=== PATIENT | female | born 1955 | race Caucasian/White ===

== ENCOUNTER 2017-11-11 17:35 | Inpatient (IN) ==
--- NOTE | 2017-11-11 18:19 | ERNOTE ---
Lower Extremity HPI - General Lower Extremities Pain: hip: left Time Seen by Provider: 11/11/17 18:01 Source: patient, family Exam Limitations: no limitations - Immun/Allergies/Home Medications Immunizations: IMMUNIZATION HX Immunizations Up to Date Yes History of Influenza Vaccine No Hx Pneumococcal Vaccination No Allergies/Adverse Reactions: Allergies Allergy/AdvReac Type Severity Reaction Status Date / Time No Known Allergies Allergy Verified 11/11/17 17:56 Home Medications: HOME MEDICATIONS Levothyroxine Sodium [Synthroid] 150 mg PO DAILY 03/29/14 [Last Taken Unknown] Naproxen [Naprosyn] 500 mg PO BID PRN 03/29/14 [Last Taken Unknown] Multivit,Min/Folic Acid/Waj570 [Estroven Max Strength Caplet] 400 mcg PO DAILY 08/23/14 [Last Taken Unknown] Duloxetine HCl [Cymbalta] 60 mg PO DAILY 10/15/16 [Last Taken Unknown] HYDROcodone/ACETAMINOPHEN [[place] 5-325 Tablet] 1 tab PO Q4H PRN #20 tab [Last Taken Unknown] Omeprazole 20 mg PO DAILY 11/07/17 [Last Taken Unknown] tiZANidine HCL [Tizanidine HCl] 4 mg PO Q8H PRN 11/07/17 [Last Taken Unknown] predniSONE [Prednisone] 3 tab PO DAILY #15 tab 11/08/17 [Last Taken Unknown] - History of Present Illness Narrative: Patient complains of left hip pain that started over the weekend. She was seen here in the lumbar x-rays were negative, however when the pain got worse and the hip. She went to [place] and saw Dr. Miranda who did an x-ray of the pelvis and left hip and noticed a fracture there. Patient requested to come here for any surgery that might be needed. She rates the pain as at least moderate in severity. Occurred: other - over the weekend Location of Incident: home Method of Injury: Reports: no apparent injury Loss of Consciousness: Reports: no loss of consciousness Modifying Factors - (Worsens): Reports: other - weightbearing Associated Symptoms: Reports: unable to bear weight Other Injuries: Reports: none Review of Systems - Review of Systems Constitutional: Present: See HPI EYE: Present: no symptoms reported ENT: Present: no symptoms reported Respiratory: Present: no symptoms reported Cardiology: Present: no symptoms reported Gastrointestinal/Abdominal: Present: no symptoms reported Genitourinary: Present: no symptoms reported Musculoskeletal: Present: See HPI Skin: Present: no symptoms reported Neurological: Present: no symptoms reported Endocrine: Present: no symptoms reported Hematologic/Lymphatic: Present: no symptoms reported Psych: Present: no symptoms reported - Patient's Past Medical History Patient History - Medical: Depression, GERD, Hypothyroidism Patient History - Cardiac/Respiratory: No pertinent hx Patient History - Cancer: No Hx of Cancer Patient History - Surgical Procedures: Back Surgery, Colonoscopy, D & C, Hysterectomy Patient History - Other: None - Social History Living Situations: home Abuse History: No History of abuse Psych History: Hx of Depression Alcohol Use: none Drug Use: none - Immunizations Immunizations Up to Date: Yes Hx Pneumococcal Vaccination: No History of Influenza Vaccine: No Physical Exam - Physical Exam General Appearance: Present: wd/wn, alert, moderate distress Head Exam: Present: normal inspection, no evidence of injury Eye Exam: Normal inspection: bilateral, PERRL: bilateral Ears, Nose, Throat: Present: normal ENT inspection, H, normal pharynx Neck: Present: normal inspection, nontender Respiratory: Present: no respiratory distress, normal breath sounds, no accessory muscle use, chest nontender, lungs clear Cardiovascular/Chest: Present: regular rate, rhythm, no murmur, normal peripheral pulses Gastrointestinal/Abdominal: Present: normal bowel sounds, nontender, nondistended, soft, no organomegaly Rectal Exam: Present: deferred Back Exam: Present: normal inspection, normal range of motion Extremity Exam: Present: no edema, other - palpable tenderness over the left hip with the left leg turned and shortened Neurological Exam: Present: alert, oriented, normal mood/affect Skin Exam: Present: normal color, warm/dry Lymphatic Exam: Present: no adenopathy ED Progress - Results and Orders Patient's Lab Results:: I have reviewed the patient's lab results. - Vital Signs Patient's Vital Signs:: I have reviewed the patient's vital signs. Vital Signs: Vital Signs 11/11/17 17:48 Temperature 36.4 C L Pulse Rate 69 Respiratory 12 Rate Blood Pressure 135/75 O2 Sat by Pulse 95 Oximetry - EKG EKG: NSR EKG read: Interp. by me - X-Ray X-Ray #1 X-Ray: hip Interpretation: Reviewed by me X-Ray #2 X-Ray: chest Interpretation: Reviewed by me - Progress/Reassessment Chief Complaint: Hip Pain/Injury - Transfer of Care Expected Disposition: Admit Plan - Plan Plan: Patient will be admitted to the medical service, with an orthopedic consult Dr. Luna and surgical consideration will be undertaken in the morning. Departure Clinical Impression: Hip fracture, left Qualifiers: Encounter type: initial encounter Fracture type: closed Qualified Code(s): S72.002A - Fracture of unspecified part of neck of left femur, initial encounter for closed fracture - Departure Disposition: Still a patient Condition: Good Referrals: Lilia Carney MD [Primary Care Provider] -
[2017-11-11 19:11] LABS: Albumin * 3.4 gm/dl (3.4-5.0); Anion Gap 13.5 mmol/L (6.8-13.8); BUN/Creatinine Ratio 30.1 (9.0-21.6); Bilirubin, Total 0.4 mg/dL (0.0-1.1); Ca. Corrected For Albumin 8.9 mg/dL (8.4-10.2); Calcium * 8.7 mg/dL (7.9-10.9); Carbon Dioxide 27.9 mmol/L (24-32.6); Hematocrit 39.5 % (37.0-47.0); Magnesium 2.1 mg/dL (1.2-2.8); Mean Cell Volume 96.3 fl (78-100); Mean Corpuscular Hemoglobin 31.7 pg (27-31); Mean Corpuscular Hgb Conc 32.9 g/dl (32-36); Mean Platelet Volume 9.2 fl (6.0-9.5); Neutrophil % 86.6 % (42-75.0); Platelet Count 414 K/mm3 (150-450); Potassium 4.4 mmol/L (3.4-4.6); Red Cell Distribution Width 12.4 % (11.5-14.0); Total Protein 7.2 gm/dL (6.2-8.2); White Blood Count 13.9 K/mm3 (4.0-10.5)
[2017-11-11 19:14] LABS: Prothrombin Time (Patient) 9.8 Seconds (9.0-11.0)
[2017-11-11 19:19] LABS: INR 0.98 INR (0.90-1.10); Partial Thrombolplastin Time 22.6 Seconds (24-32)
[2017-11-11] MEDS ORDERED: MORPHINE SULFATE 2 MG/ML DISP.SYRIN IV ONE (20:08)
[2017-11-11] MEDS ORDERED: BISACODYL 5 MG TABLET.DR PO ONE (20:10)
[2017-11-11] MEDS ORDERED: SENNOSIDES 8.6 MG TABLET PO SCH (20:15)
--- NOTE | 2017-11-11 20:23 | PN ---
Progess Note - Interim Date: 11/11/17 Time: 20:13 Narrative: 11/11/17 20:13 62 yr old WF with a H/O multiple back surgeries[X4] had worsening pain LT hip and leg - seen in ER on 11/07/17 thought to be sciatica. 11/11/17 - seen by Dr. Carney who sent her to Dr. Miranda who did xrays - found LT hip fracture and sent her back to ER. ERP discussed with Dr. Luna and the patient was admitted for Rx. No H/O fall. H/O smoking for several years 2PPD - now e cigarette. labs reviewed. patient examined. labs reviewed. no cardiac risk factors.- HTN, T2Dm, Cr2.0, CAD, etc. will not need testing. NPO after midnight. Full H and P to done done [employer].[Jen Kumar].
[2017-11-11] MEDS: DEXTROSE 5%-NORMAL SALINE 1,000 ML IV PRN (20:58)
[2017-11-11] MEDS: SENNOSIDES 8.6 MG TABLET PO SCH (20:59)
--- NOTE | 2017-11-11 22:17 | HP ---
Chief Complaint - Chief Complaint Date of Service: 11/11/17 Time of Service: 22:13 Chief Complaint: " LT hip pain". Source of HPI- Pt reliable, ERP notes. History of Present Illness: Ms. Aranda is a 62-yr-old WF pt of Dr. Lilia Carney with PMH of:Chronic Back pain, HTN, HLD, Hypothyroidism & Spinal stenosis s/p laminectomy. Pt states that she first developed LT hip pain that was radiating down the thigh on 10/23/17 after mowing her father's yard. She thought she may have pulled a muscle and took Tramadol and Naproxyn which made the pain tolerable. She used a walking cane which also eased her walking. She saw her PCP on 10/30/17 about the unrelenting LT hip pain. She had LT Hip/Pelvis X-rays which did not show any acute findings involving fracture or dislocation. She was started on Prednisone. She states that on the night of 11/07/17, she could not sleep due to severe pain on LT hip and ended up seeking care at the ED. She had Lumbar spine X-rays which also did not have any acute findings. She was felt to have Sciatica and was discharged home on Prednisone, hydrocodone and advised to f/u with her PCP. She saw Dr. Carney today (11/11) and she was referred to Dr. Miranda - Orthopedic spine specialty at the [facility], who did an x-ray of the pelvis and left hip and noticed a fracture there. Pt elected to come to the [facility] as she resides in the area. Dr. Luna aware about pt's case according to ERP . She will be admitted inpatient for tentative plans of surgery on 11/12/17. - Patient's Past Medical History Patient History - Medical: Depression, GERD, Hypothyroidism Patient History - Cardiac/Respiratory: Hypertension, Hyperlipidemia Patient History - Cancer: No Hx of Cancer Patient History - Surgical Procedures: Back Surgery, Colonoscopy, D & C, Hysterectomy Patient History - Other: None - Family History Mother Family History - Medical: , Renal Disease Family History - Cardiac/Respiratory: Deep Vein Thrombosis Family History - Cancer: No pertinent family hx Father Family History - Medical: Family History - Cancer: No pertinent family hx Sister Family History - Medical: Family History - Cardiac/Respiratory: No pertinent hx Family History - Cancer: Bone - Social History Living Situations: spouse Abuse History: No History of abuse Psych History: Hx of Depression Smoking Status: Former smoker Have you smoked in the past 12 months: No Do you dip or chew tobacco: No Alcohol Use: none Drug Use: none - Immunizations Immunizations Up to Date: Yes Hx Pneumococcal Vaccination: No History of Influenza Vaccine: No Review Of Systems (GEN) - Review of Systems Generalized/Overall Review: Present: Weakness. Absent: Chills, Fever, Malaise EENTM: Absent: Eye Pain, Blurred Vision, Tearing Respiratory: Absent: Cough, Shortness of Breath, Orthopnea Cardiac: Absent: Chest Pain, Edema, Palpitations, Syncope Abdominal: Absent: Nausea, Vomiting, Hematemesis, Abdominal Pain, Constipation Genitourinary: Absent: Burning, Itching, Urgency Musculoskeletal: Present: Joint Pain, Back Pain. Absent: Joint Swelling, Muscle Pain Neurological: Absent: Headache, Anxiety, Depressed Skin: Absent: Dryness, Lesions, Change in Color Misc: All systems neg except as marked Immunizations: IMMUNIZATION HX Immunizations Up to Date Yes History of Influenza Vaccine No Hx Pneumococcal Vaccination No Allergies/Adverse Reactions: Allergies Allergy/AdvReac Type Severity Reaction Status Date / Time No Known Allergies Allergy Verified 11/11/17 21:02 Home Medications: HOME MEDICATIONS Levothyroxine Sodium [Synthroid] 150 mg PO DAILY 03/29/14 [Last Taken Unknown] Naproxen [Naprosyn] 500 mg PO BID PRN 03/29/14 [Last Taken Unknown] Duloxetine HCl [Cymbalta] 60 mg PO DAILY 10/15/16 [Last Taken Unknown] HYDROcodone/ACETAMINOPHEN [[place] 5-325 Tablet] 1 tab PO Q4H PRN #20 tab [Last Taken Unknown] Omeprazole 20 mg PO DAILY 11/07/17 [Last Taken Unknown] tiZANidine HCL [Tizanidine HCl] 4 mg PO Q8H PRN 11/07/17 [Last Taken Unknown] predniSONE [Prednisone] 3 tab PO DAILY #15 tab 11/08/17 [Last Taken Unknown] Soy Isofl/Blk Coh/Gr Tea/Yerba [Est[employer] Caplet] 1 cap PO DAILY 11/11/17 [Last Taken Unknown] Exam - Exam Vital Signs: Vital Signs - Last Taken Temp 36.5 C 11/11/17 21:07 Pulse 60 11/11/17 21:07 Resp 16 11/11/17 21:07 BP 168/81 11/11/17 21:07 Pulse Ox 97 11/11/17 21:07 Constitutional: Present: Alert, Cooperative, No distress ENT Exam: Present: normal ENT inspection Eye Exam: bilateral eye: normal inspection, PERRL Neck: Present: non-tender, full range of motion, supple Back Exam: Present: normal inspection Breasts: Present: Exam deferred Respiratory: Present: chest non-tender, No rales, No wheezing Cardiovascular/Chest: Present: normal peripheral pulses, regular rate, rhythm, no chest tenderness, no edema Abdomen: Present: Normal bowel sounds, soft, nontender /Rectal: Present: Exam deferred Extremity: Present: normal range of motion, non-tender, normal inspection, no pedal edema Skin Exam: Present: warm/dry, no cyanosis Lymphatic: Present: no adenopathy Neurologic: Present: alert, normal mood/affect, oriented x 3 Appearance: Present: appropriate appearance, appropriate insight Eye contact: Present: cooperative, good eye contact, normal speech Thoughts: Present: normal thought pattern, no apparent hallucination Diagnostic Studies: Laboratory Results WBC 13.9 K/mm3 (4.0-10.5) H 11/11/17 18:57 RBC 4.10 M/mm3 (4.2-5.4) L 11/11/17 18:57 Hgb 13.0 gm/dL (12.5-16.0) 11/11/17 18:57 Hct 39.5 % (37.0-47.0) 11/11/17 18:57 MCV 96.3 fl (78-100) 11/11/17 18:57 MCH 31.7 pg (27-31) H 11/11/17 18:57 MCHC 32.9 g/dl (32-36) 11/11/17 18:57 RDW 12.4 % (11.5-14.0) 11/11/17 18:57 Plt Count 414 K/mm3 (150-450) 11/11/17 18:57 MPV 9.2 fl (6.0-9.5) 11/11/17 18:57 Immature Gran % (Auto) 0.70 % (0.001-0.429) H 11/11/17 18:57 Immature Gran # (Auto) 0.10 K/mm3 (0.000-0.0310) H 11/11/17 18:57 Neutrophils % 86.6 % (42-75.0) H 11/11/17 18:57 Lymphocytes % 7.6 % (20-51) L 11/11/17 18:57 Monocytes % 5.0 % (0.0-9) 11/11/17 18:57 Eosinophils % 0.0 % (0.0-3.0) 11/11/17 18:57 Basophils % 0.1 % (0.0-1.0) 11/11/17 18:57 Nucleated RBC % 0.0 k/mm3 (0-1) 11/11/17 18:57 Neutrophils # 12.0 K/mm3 (1.3-6.0) H 11/11/17 18:57 Lymphocytes # 1.05 k/mm3 (1.5-3.5) L 11/11/17 18:57 Monocytes # 0.7 k/mm3 (0.0-1.0) 11/11/17 18:57 Eosinophils # 0.0 k/mm3 (0.0-0.7) 11/11/17 18:57 Absolute Basophils 0.0 k/mm3 (0.0-0.1) 11/11/17 18:57 PT 9.8 Seconds (9.0-11.0) 11/11/17 18:57 INR (Anticoag Therapy) 0.98 INR (0.90-1.10) 11/11/17 18:57 PTT ([place]) 22.6 Seconds (24-32) L 11/11/17 18:57 Sodium 137 mmol/L (132-142) 11/11/17 18:57 Plasma Sodium 137 mmol/L (130-142) 11/11/17 18:57 Potassium 4.4 mmol/L (3.4-4.6) 11/11/17 18:57 Chloride 100 mmol/L (97-106) 11/11/17 18:57 Carbon Dioxide 27.9 mmol/L (24-32.6) 11/11/17 18:57 Anion Gap 13.5 mmol/L (6.8-13.8) 11/11/17 18:57 BUN 28 mg/dL (3-23) H 11/11/17 18:57 Creatinine 0.93 mg/dL (0.4-1.4) 11/11/17 18:57 Est GFR (Non-Af Amer) 65 mL/min (60-130) 11/11/17 18:57 BUN/Creatinine Ratio 30.1 (9.0-21.6) H 11/11/17 18:57 Random Glucose 103 mg/dL (70-110) 11/11/17 18:57 Calcium 8.7 mg/dL (7.9-10.9) 11/11/17 18:57 Calcium Adj for Albumin 8.9 mg/dL (8.4-10.2) 11/11/17 18:57 Magnesium 2.1 mg/dL (1.2-2.8) 11/11/17 18:57 Total Bilirubin 0.4 mg/dL (0.0-1.1) 11/11/17 18:57 AST 24 U/L (0-48) 11/11/17 18:57 ALT 43 U/L (19-67) 11/11/17 18:57 Alkaline Phosphatase 77 U/L (50-170) 11/11/17 18:57 Troponin I Less than 0.017 ng/ml (0.00-0.10) 11/11/17 18:55 Total Protein 7.2 gm/dL (6.2-8.2) 11/11/17 18:57 Albumin 3.4 gm/dl (3.4-5.0) 11/11/17 18:57 Blood Type O Positive 11/11/17 18:57 Antibody Screen Negative 11/11/17 18:57 Assessment/Plan - Assessment/Plan (1) Hip fracture, left Assessment: According to LT hip/pelvis films obtained at an [facility], finding noted to have concerns of fracture. Will provide supportive care with IVF hydration, pain mgt , keep NPO and evaluate cardiac risk prior to noncardiac surgery. The labs involving CBC& BMP were mostly unremarkable and wbc could be due to stress from muscle injury/joint fracture. The EKG and Troponin were negative of ACS/ MT. The CXR did not have any acute cardiopulmonary signs. She denies Angina, dyspnea, palpitations, no hx of sycnope or heart disease. According to the RCRI , she has a score of 1 which is Class II risk and carries a 0.9% risk of a major cardiac event periperatively and postoperatively. The benefits of surgery outweighs the risk of not doing any and is clear to proceed with surgery. Dr. Luna will evaluate in am. Problem: Acute Qualifiers: Encounter type: initial encounter Fracture type: closed Qualified Code(s) : S72.002A - Fracture of unspecified part of neck of left femur, initial encounter for closed fracture (2) Hypothyroidism Assessment: Stable- Synthroid. Problem: Chronic (3) GERD (gastroesophageal reflux disease) Assessment: Stable- Omeprazole Problem: Chronic (4) HTN (hypertension) Assessment: Stable as of current. Keep pain under control. Problem: Chronic Qualifiers: Hypertension type: essential hypertension Qualified Code(s): I10 - Essential (primary) hypertension
[2017-11-11] MEDS ORDERED: NAPROXEN 500 MG TABLET PO PRN (23:34)
[2017-11-11] MEDS ORDERED: diphenhydrAMINE HCL 25 MG CAPSULE PO ONE (23:35)
[2017-11-12] MEDS: DEXTROSE 5%-NORMAL SALINE 1,000 ML IV PRN (05:01)
--- NOTE | 2017-11-12 05:24 | PN ---
Subjective - Date and Time Seen Date: 11/12/17 Time: 05:23 Subjective Narrative: Pt seen this am. Has no complaints. Reports LT hip pain with movement. No other acute events overnight. Objective - Vitals Vitals: Last Vital Signs Temp 36.3 C L 11/11/17 23:30 Pulse 68 11/11/17 23:30 Resp 18 11/11/17 23:30 BP 170/77 11/11/17 23:30 Pulse Ox 97 11/11/17 23:30 - Exam Constitutional: Present: Alert, Oriented x3, No distress ENT Exam: Present: normal ENT inspection, hearing grossly normal Neck: Present: non-tender, full range of motion, supple Breasts: Present: Exam deferred Respiratory: Present: chest non-tender, lungs clear Cardiovascular/Chest: Present: normal peripheral pulses, regular rate, rhythm Abdomen: Present: Normal bowel sounds, soft, nontender, obese /Rectal: Present: Exam deferred Extremity: Present: normal range of motion, non-tender, normal inspection, no pedal edema Skin Exam: Present: warm/dry, no cyanosis Lymphatic: Present: no adenopathy Neurologic: Present: alert, normal mood/affect, oriented x 3 Appearance: Present: appropriate appearance, appropriate insight Eye contact: Present: cooperative, good eye contact, normal speech Thoughts: Present: no apparent hallucination Assessment/Plan - Problems/Diagnosis (1) Hip fracture, left Problem: Acute Qualifiers: Encounter type: initial encounter Fracture type: closed Qualified Code(s) : S72.002A - Fracture of unspecified part of neck of left femur, initial encounter for closed fracture Narrative: According to LT hip/pelvis films obtained at an [facility], finding noted to have concerns of fracture. Will provide supportive care with IVF hydration, pain mgt , keep NPO and evaluate cardiac risk prior to noncardiac surgery. The labs involving CBC& BMP were mostly unremarkable and wbc could be due to stress from muscle injury/joint fracture. The EKG and Troponin were negative of ACS/ PR. The CXR did not have any acute cardiopulmonary signs. She denies Angina, dyspnea, palpitations, no hx of sycnope or heart disease. According to the RCRI , she has a score of 1 which is Class II risk and carries a 0.9% risk of a major cardiac event periperatively and postoperatively. The benefits of surgery outweighs the risk of not doing any and is clear to proceed with surgery. Dr. Luna will evaluate in am. (2) Hypothyroidism Problem: Chronic Narrative: Stable- synthroid (3) GERD (gastroesophageal reflux disease) Problem: Chronic Narrative: Stable - Omeprazole (4) HTN (hypertension) Problem: Chronic Qualifiers: Hypertension type: essential hypertension Qualified Code(s): I10 - Essential (primary) hypertension Narrative: Keep pain under control. may consider starting lisinopril (5) Depression Problem: Chronic Narrative: Stable-Cymbalta
[2017-11-12 05:42] LABS: Hematocrit 38.3 % (37.0-47.0); Hemoglobin 12.2 gm/dL (12.5-16.0); Mean Cell Volume 97.2 fl (78-100); Mean Corpuscular Hgb Conc 31.9 g/dl (32-36); Mean Platelet Volume 9.1 fl (6.0-9.5); Neutrophil # 7.4 K/mm3 (1.3-6.0); Neutrophil % 68.3 % (42-75.0); Platelet Count 331 K/mm3 (150-450); Red Blood Count 3.94 M/mm3 (4.2-5.4); Red Cell Distribution Width 12.3 % (11.5-14.0); White Blood Count 10.8 K/mm3 (4.0-10.5)
[2017-11-12 05:45] LABS: Anion Gap 12.6 mmol/L (6.8-13.8); Calcium * 8.4 mg/dL (7.9-10.9); Carbon Dioxide 27.9 mmol/L (24-32.6); Estimated Creat Clear 65.6; Potassium 3.5 mmol/L (3.4-4.6)
[2017-11-12] MEDS: MORPHINE SULFATE 4 MG/ML SYRG IV PRN ×3 (06:42→22:34)
[2017-11-12] MEDS: LEVOTHYROXINE SODIUM 150 MCG TABLET PO SCH (07:29)
[2017-11-12] MEDS: PANTOPRAZOLE SODIUM 20 MG TABLET.DR PO SCH (07:29)
--- NOTE | 2017-11-12 07:55 | CONS ---
[facility] - General Date of Service: 11/12/17 Narrative: Bharat is a 62-year-old female who presents with a displaced left basicervical femoral neck fracture. She has an unusual history for this injury. She noted the onset of some vague hip pain on approximately October 23 while she was helping remodel her house. She initially saw her PCP and was diagnosed with a muscle strain and then instructed to limit her activity and treat this symptomatically for the next week or so. Her pain gradually increased until Thursday when she had acutely increased onset of her pain. At this time her pain was felt to be related to her back issues had multiple previous back surgeries and fusions. She continued to have pain and presented to an outside hospital where imaging revealed a displaced left basicervical femoral neck fracture. She was then transferred to our facility upon the patient's request for further evaluation and treatment. She denies any significant traumatic episode or fall proceeding this. Upon my evaluation she complains only of low back and left hip pain. - History of Present Illness Allergies/Adverse Reactions: Allergies No Known Allergies Allergy (Verified 11/11/17 21:02) Home Medications: Home Medications Medication Instructions Recorded Last Taken Levothyroxine Sodium [Synthroid] 150 mg PO DAILY 03/29/14 Unknown Naproxen [Naprosyn] 500 mg PO BID PRN 03/29/14 Unknown Duloxetine HCl [Cymbalta] 60 mg PO DAILY 10/15/16 Unknown Omeprazole 20 mg PO DAILY 11/07/17 Unknown tiZANidine HCL [Tizanidine HCl] 4 mg PO Q8H PRN 11/07/17 Unknown Soy Isofl/Blk Coh/Gr Tea/Yerba 1 cap PO DAILY 11/11/17 Unknown [[employer] Caplet] - Patient's Past Medical History Patient History - Medical: Depression, GERD, Hypothyroidism Patient History - Cardiac/Respiratory: Hypertension, Hyperlipidemia Patient History - Cancer: No Hx of Cancer Patient History - Surgical Procedures: Back Surgery, Colonoscopy, D & C, Hysterectomy Patient History - Other: None - Family History Mother Family History - Medical: , Renal Disease Family History - Cardiac/Respiratory: Deep Vein Thrombosis Family History - Cancer: No pertinent family hx Father Family History - Medical: Family History - Cancer: No pertinent family hx Sister Family History - Medical: Family History - Cardiac/Respiratory: No pertinent hx Family History - Cancer: Bone - Social History Living Situations: spouse Abuse History: No History of abuse Psych History: Hx of Depression Smoking Status: Former smoker Have you smoked in the past 12 months: No Do you dip or chew tobacco: No Alcohol Use: none Drug Use: none - Immunizations Immunizations Up to Date: Yes Hx Pneumococcal Vaccination: No History of Influenza Vaccine: No Procedures ANESTH INJECT-SPIN CANAL (12/30/10) APPLICATION OF SPLINT (03/05/99) COLONOSCOPY (09/02/10) D & C NEC (04/18/05) EXC LES SOFT TISSUE NEC (08/31/14) INJECT STEROID (12/30/10) SPINAL CANAL INJECT NEC (12/30/10) Medications - Medications Current Medications: Current Medications Dextrose/Sodium Chloride (Dextrose 5%-0.9% Ns) 1,000 mls @ 125 mls/hr IV .Q8H PRN PRN Reason: HYDRATION Stop: 12/11/17 20:10 Last Admin: 11/12/17 05:01 Dose: 125 mls/hr Levothyroxine Sodium (Synthroid) 150 mcg PO DAILY@0630 [facility] Stop: 12/12/17 06:31 Last Admin: 11/12/17 07:29 Dose: 150 mcg Morphine Sulfate (Morphine Sulfate) 2 mg IV Q2H PRN PRN Reason: Moderate Pain (pain scale 4-6) Stop: 12/11/17 21:40 Last Admin: 11/12/17 06:42 Dose: 2 mg Naproxen (Naprosyn) 500 mg PO BID PRN PRN Reason: Pain Stop: 12/11/17 23:35 Last Admin: 11/11/17 23:44 Dose: 500 mg Pantoprazole Sodium (Protonix) 20 mg PO DAILY@0700 [facility] Stop: 12/12/17 07:01 Last Admin: 11/12/17 07:29 Dose: 20 mg Senna (Senokot) 17.2 mg PO HS [facility] Stop: 12/11/17 20:16 Last Admin: 11/11/17 20:59 Dose: Not Given Review of Systems - Review of Systems Narrative: As per HPI otherwise negative. Physical Examination - Exam Narrative: Gen: A&Ox4, NAD Resp: breathing non-labored on RA MSK: Left lower extremity is slightly shortened and externally rotated, tenderness to palpation in the inguinal area, pain with any manipulation of the hip, SILT in all nerve distributions of the left lower extremity, able to dorsiflex and plantarflex ankle with good strength, distal pulses palpable Radiology: Plain films of the left hip were reviewed which demonstrate a displaced and varus angulated basicervical femoral neck fracture. No obvious pathologic lesions noted. Osteopenia noted. Vital Signs: Vital Signs - Last Taken Temp 37 C 11/12/17 07:31 Pulse 65 11/12/17 07:31 Resp 18 11/12/17 07:31 BP 187/84 11/12/17 07:31 Pulse Ox 99 11/12/17 07:31 O2 Oxygen Delivery Method Room Air - Results and Findings: Narrative: This is a 62-year-old female with a displaced left basicervical femoral neck fracture. - Counseled the patient on the need for operative intervention given her age and activity level. Given her atypical history would like to obtain a preoperative CT scan to rule out any kind of pathological lesion before proceeding with surgical intervention. Options for surgery and given the location and pattern of the fracture recommended closed versus open reduction and fixation with a cephalo-medullary device. I counseled her on the risks and benefits of surgery including, but not limited to, infection, bleeding, nerve or blood vessel injury, nonunion/malunion, avascular necrosis of the femoral head, arthrosis, implant failure and screw cut out, leg length discrepancy, DVT/ PE, and risks with anesthesia. After discussion she wishes to proceed with surgical intervention pending the results of her CT scan. - Nothing by mouth since midnight - Continue comanagement by medicine team Lab/Microbiology results last 24 hrs: Abnormal/Pending Laboratory Last 24 HRS 11/12/17 11/12/17 05:33 05:33 WBC 10.8 H D RBC 3.94 L Hgb 12.2 L MCHC 31.9 L Immature Gran % (Auto) 0.60 H Immature Gran # (Auto) 0.06 H Neutrophils # 7.4 H Sodium 143 H Plasma Sodium 143 H BUN/Creatinine Ratio 25.0 H - Assessments/Findings (1) Hip fracture, left Problem: Acute Qualifiers: Encounter type: initial encounter Fracture type: closed Qualified Code(s) : S72.002A - Fracture of unspecified part of neck of left femur, initial encounter for closed fracture
[2017-11-12] MEDS ORDERED: DEXTROSE 5%-NORMAL SALINE 1,000 ML IV ONE (09:20)
[2017-11-12] MEDS ORDERED: ceFAZolin SODIUM 1 GM VIAL IV ONE (09:35)
[2017-11-12] MEDS ORDERED: RINGER'S SOLUTION,LACTATED 1,000 ML IV ONE (11:00)
[2017-11-12] MEDS ORDERED: ONDANSETRON HCL/PF 2 MG/ML VIAL IV PRN (11:19)
[2017-11-12] MEDS ORDERED: MAG HYDROX/ALUMINUM HYD/SIMETH 30 ML UDC PO PRN (11:19)
[2017-11-12] MEDS ORDERED: PROMETHAZINE HCL 5 MG in DEXTROSE 5 % IN WATER 50 ML IV PRN ×2 (11:19)
[2017-11-12] MEDS ORDERED: MAGNESIUM HYDROXIDE 30 ML UDC PO PRN (11:19)
[2017-11-12] MEDS ORDERED: ACETAMINOPHEN 500 MG TABLET PO PRN (11:19)
--- NOTE | 2017-11-12 11:29 | OR ---
Operative Report - Dictated Report Narrative: Date: 11/12/2017 Surgeon: Edmundo Luna M.D. [employer] Supervisor: Berto Arce PA-C Preoperative diagnosis: Left, displaced basicervical femoral neck fracture Postoperative diagnosis: Left, displaced basicervical femoral neck fracture Operations and procedures: 1. Closed reduction, cephalo-medullary fixation left basicervical femoral neck fracture 2. Intraoperative interpretation of radiographs Anesthesia: Gen. Specimens: None Estimated blood loss: 200 Milliliters Retained implants: [employer] Trigen InterTAN 130 degree size 11.5 mm by 20 centimeter nail with 95 millimeter lag screw and 90 millimeter compression screw , with distal locking screw Complications: None Indications for procedure: Sami is a 62-year-old female who developed a displaced left basicervical femoral neck fracture. Her history was atypical as she did not sustain any sort of trauma or fall. She had an approximately 2 week course of worsening left hip pain to the point where it became too painful to walk. Workup at an outside hospital revealed a displaced left basicervical femoral neck fracture and she requested transfer to [facility] for further evaluation and treatment. They were admitted to the hospital after being evaluated in the emergency department. Once the medical provider felt that they were stable for surgical treatment, the risks and benefits alternatives were discussed. The risks of , blood clots, bleeding, infection, nerve/ tendon/blood vessel injury, malunion, nonunion, failure of implants, painful implants, arthrosis, and need for additional procedures were discussed. The extremity was marked and consent was obtained on the floor. Procedure: After marking the operative extremity on the floor, the patient was taken to the operating room. A timeout was performed. IV antibiotics consisting of 2 g of Ancef were administered. A general anesthetic was induced by anesthesia, and the patient was then placed onto a fracture table with a well-padded perineal post. The non-operative leg was placed in a well-padded well leg gilliland in lithotomy position with an SCD on the leg. The operative leg was placed in a well-padded traction boot. Longitudinal traction, internal rotation , and adduction were utilized in order to reduce the fracture. Preliminary images were attained utilizing C-arm in both the AP and lateral views. This confirmed that we had obtained adequate visualization of the fracture as well as reduction. Next the hip was then prepped and draped in a standard sterile fashion. Next, the guidewire was placed percutaneously proximal to the greater trochanter to aleksandra a starting point at the tip of the greater trochanter centered on the lateral view. This was advanced down to the level below the lesser trochanter. A scalpel was utilized to dissect down to the greater trochanter in order to advance the soft tissue protector down to bone. The entry reamer was then advanced down the proximal femur to the level of the lesser trochanter. The above nail was then selected and impacted into place. The outrigger was utilized in order to confirm the appropriate depth of the nail. Using the alignment device on the outrigger, a josé incision was made over the lateral femur. Sharp dissection was carried through the iliotibial band down to the proximal femur. The guidewire was was placed into the femoral head in a center center position on AP and lateral views. A tip apex distance less than 25 mm combined was obtained. A head neck angle approximately 130 was confirmed to avoid varus deformity. Once we felt that we had placed the guidewire in the appropriate position, it was measured. Next the compression screw entry drill was advanced through the lateral cortex. This was then drilled down to the appropriate depth for the compression screw, again confirming that we are within the confines the bone. The derotational bar was then placed and the lag screw was drilled to the appropriate depth. The lag screw was then secured in place ensuring that we were within the confines of the bone. The compression screw was then inserted allowing for compression while releasing the traction on the leg. Using C-arm this was visualized to allow for compression across the fracture site. Once it was felt we had adequately stabilized the intertrochanteric fracture, the distal interlocking screw was placed in a static position confirmed to be the appropriate length and within the nail on both AP and lateral views. The nail was secured with a set screw backed off a quarter turn allowing for controlled compression and the outrigger was removed. The wounds were then thoroughly irrigated. Final images were obtained. The hip was placed through range of motion and showed no crepitance. The deep fascia was closed with 0 Vicryl, the subcutaneous tissue with 3-0 Vicryl, and the skin was closed with interrupted 4- 0 nylon. Sterile dressings of Xeroform, 4 x 4s, and tegaderm were applied. All sponge, sharp, and instrument counts were correct prior to closing the wounds. The patient was then awoken and transferred to the postanesthesia care unit in stable condition.
[2017-11-12] MEDS: NORMAL SALINE 1,000 ML IV PRN ×2 (12:48→21:23)
[2017-11-12] MEDS: DULoxetine HCL 30 MG CAPSULE.SA PO SCH (13:40)
[2017-11-12] MEDS: ceFAZolin SODIUM 1 GM in DEXTROSE 5 % IN WATER 100 ML IV SCH ×4 (15:08→22:45)
[2017-11-12] MEDS: oxyCODONE HCL/ACETAMINOPHEN 1 TAB TABLET PO PRN ×2 (15:15→19:27)
[2017-11-12] MEDS: SENNOSIDES/DOCUSATE SODIUM 1 TAB TABLET PO SCH (20:26)
[2017-11-12] MEDS: SENNOSIDES 8.6 MG TABLET PO SCH (20:26)
[2017-11-12] MEDS: ZOLPIDEM TARTRATE 5 MG TABLET PO PRN (20:34)
[2017-11-13] MEDS: oxyCODONE HCL/ACETAMINOPHEN 1 TAB TABLET PO PRN ×4 (05:08→19:11)
--- NOTE | 2017-11-13 05:08 | PN ---
Subjective - Date and Time Seen Date: 11/13/17 Time: 05:08 Subjective Narrative: Pt examined this am. Has no complaints. pain is well controlled. BP's have been elevated. Will start on low dose lisinopril. No other acute events overnight. Objective - Vitals Vitals: Last Vital Signs Temp 36.8 C 11/13/17 00:27 Pulse 73 11/13/17 02:27 Resp 16 11/13/17 02:27 BP 180/96 11/13/17 02:27 Pulse Ox 97 11/13/17 02:27 - Abnormal Lab Findings Abnormal Lab Findings: Abnormal Lab Results 11/12/17 11/12/17 Range/Units 05:33 05:33 WBC 10.8 H D (4.0-10.5) K/mm3 RBC 3.94 L (4.2-5.4) M/mm3 Hgb 12.2 L (12.5-16.0) gm/dL MCHC 31.9 L (32-36) g/dl Immature Gran % (Auto) 0.60 H (0.001-0.429) % Immature Gran # (Auto) 0.06 H (0.000-0.0310) K/mm3 Neutrophils # 7.4 H (1.3-6.0) K/mm3 Sodium 143 H (132-142) mmol/L Plasma Sodium 143 H (130-142) mmol/L BUN/Creatinine Ratio 25.0 H (9.0-21.6) - Exam Constitutional: Present: Alert, Oriented x3, Cooperative ENT Exam: Present: normal ENT inspection Neck: Present: non-tender, full range of motion Breasts: Present: Exam deferred Respiratory: Present: lungs clear Cardiovascular/Chest: Present: normal peripheral pulses, regular rate, rhythm, no chest tenderness Abdomen: Present: Normal bowel sounds, soft, nontender /Rectal: Present: Exam deferred Extremity: Present: normal range of motion Skin Exam: Present: warm/dry, no cyanosis Lymphatic: Present: no adenopathy Neurologic: Present: normal mood/affect, oriented x 3 Appearance: Present: appropriate appearance, appropriate insight Eye contact: Present: cooperative, good eye contact, normal speech Thoughts: Present: normal thought pattern, no apparent hallucination Cauti Physician Documentation - Urinary Catheter Management Urethral (Kowalski) Date of Insertion: 11/12/17 Time of Insertion: 10:00 Assessment/Plan - Problems/Diagnosis (1) Hip fracture, left Problem: Acute Qualifiers: Encounter type: initial encounter Fracture type: closed Qualified Code(s) : S72.002A - Fracture of unspecified part of neck of left femur, initial encounter for closed fracture Narrative: POD # 1 For closed reduction of LT femoral neck fracture. Follow ortho recommendations: PT/OT, pain mgt, bowel regiment, anticoagulants. (2) Hypothyroidism Problem: Chronic (3) HTN (hypertension) Problem: Chronic Qualifiers: Hypertension type: essential hypertension Qualified Code(s): I10 - Essential (primary) hypertension Narrative: Has not been on any antihypertensives, but pain is well controlled. Will start her on low dose Lisinopril. Selected Entries 11/12/17 11/13/17 11/13/17 22:27 00:27 02:27 Blood Pressure 166/96 177/90 180/96 (4) GERD (gastroesophageal reflux disease) Problem: Chronic (5) Depression Problem: Chronic
[2017-11-13] MEDS ORDERED: LISINOPRIL 10 MG TABLET PO SCH (05:15)
[2017-11-13 05:52] LABS: Hematocrit 37.6 % (37.0-47.0); Mean Cell Volume 98.2 fl (78-100); Mean Corpuscular Hemoglobin 31.3 pg (27-31); Mean Corpuscular Hgb Conc 31.9 g/dl (32-36); Mean Platelet Volume 9.3 fl (8-12.5); Platelet Count 385 K/mm3 (150-450); Red Blood Count 3.83 M/mm3 (4.2-5.4); Red Cell Distribution Width 12.1 % (11.5-14.0); White Blood Count 14.1 K/mm3 (4.0-10.5)
[2017-11-13 05:54] LABS: Anion Gap 11.1 mmol/L (6.8-13.8); BUN/Creatinine Ratio 18.4 (9.0-21.6); Calcium * 8.6 mg/dL (7.9-10.9); Carbon Dioxide 29.6 mmol/L (24-32.6); Estimated Creat Clear 69.4; Potassium 3.7 mmol/L (3.4-4.6)
[2017-11-13] MEDS: PANTOPRAZOLE SODIUM 20 MG TABLET.DR PO SCH (06:42)
[2017-11-13] MEDS: LEVOTHYROXINE SODIUM 150 MCG TABLET PO SCH (06:42)
[2017-11-13] MEDS: ceFAZolin SODIUM 1 GM in DEXTROSE 5 % IN WATER 100 ML IV SCH ×2 (06:44)
--- NOTE | 2017-11-13 09:30 | PN ---
Subjective - Date and Time Seen Date: 11/13/17 Time: 08:15 Subjective Narrative: Patient reports no acute events pain well controlled with oral pain medication. She has transitioned from bed to chair, no significant walking yet. Objective - Vitals Vitals: Last Vital Signs Temp 36.9 C 11/13/17 06:58 Pulse 67 11/13/17 06:58 Resp 18 11/13/17 06:58 BP 161/86 11/13/17 06:58 Pulse Ox 95 11/13/17 06:58 - Abnormal Lab Findings Abnormal Lab Findings: Abnormal Lab Results 11/13/17 Range/Units 05:41 WBC 14.1 H D (4.0-10.5) K/mm3 RBC 3.83 L (4.2-5.4) M/mm3 Hgb 12.0 L (12.5-16.0) gm/dL MCH 31.3 H (27-31) pg MCHC 31.9 L (32-36) g/dl - Exam Constitutional: Present: Alert, Oriented x3, Cooperative, No distress Respiratory: Present: no respiratory distress Extremity: Present: other - LLE--> bandages c/d/i, SILT, dorsal pedis 2+, 4+/5 knee ext/flex, minimal ttp over greater trochanter Eye contact: Present: cooperative Thoughts: Present: normal thought pattern Cauti Physician Documentation - Urinary Catheter Management Urethral (Kowalski) Date of Insertion: 11/12/17 Time of Insertion: 10:00 Date of Removal: 11/13/17 Time of Removal: 06:50 Assessment/Plan Plan Narrative: -62 y/o female post-op day #1 s/p left cephalomedullary nailing of femur fracture - WBAT with walker PRN - PO diet as tolerated -PO pain medication PRN - Bandages maintain intact - PT/OT progress as tolerated - DVT Prophy: dot stiles, lovejoes gx, SCDs in bed - Plan to increase WBAT today with PT needs to pass stairs before able to d/c, continue pain control, monitor BP and labs - Hgb 12.0 continue to monitor - WBC 14.1 continue to monitor - Problems/Diagnosis (1) Hip fracture, left Problem: Acute Qualifiers: Encounter type: initial encounter Fracture type: closed Qualified Code(s) : S72.002A - Fracture of unspecified part of neck of left femur, initial encounter for closed fracture
[2017-11-13] MEDS: ENOXAPARIN SODIUM 40 MG/0.4 ML SYRG SC SCH (10:07)
[2017-11-13] MEDS: DULoxetine HCL 30 MG CAPSULE.SA PO SCH (10:07)
[2017-11-13] MEDS: SENNOSIDES 8.6 MG TABLET PO SCH (20:22)
[2017-11-13] MEDS: SENNOSIDES/DOCUSATE SODIUM 1 TAB TABLET PO SCH (20:23)
[2017-11-13] MEDS: ZOLPIDEM TARTRATE 5 MG TABLET PO PRN (21:55)
[2017-11-14] MEDS: oxyCODONE HCL/ACETAMINOPHEN 1 TAB TABLET PO PRN ×4 (04:13→16:18)
[2017-11-14 05:20] LABS: Hematocrit 34.6 % (37.0-47.0); Hemoglobin 10.9 gm/dL (12.5-16.0); Mean Cell Volume 98.6 fl (78-100); Mean Corpuscular Hemoglobin 31.1 pg (27-31); Mean Corpuscular Hgb Conc 31.5 g/dl (32-36); Mean Platelet Volume 9.1 fl (8-12.5); Platelet Count 326 K/mm3 (150-450); Red Blood Count 3.51 M/mm3 (4.2-5.4); Red Cell Distribution Width 12.4 % (11.5-14.0); White Blood Count 10.2 K/mm3 (4.0-10.5)
[2017-11-14 05:28] LABS: Anion Gap 8.8 mmol/L (6.8-13.8); BUN/Creatinine Ratio 20.2 (9.0-21.6); Calcium * 8.7 mg/dL (7.9-10.9); Carbon Dioxide 31.2 mmol/L (24-32.6); Estimated Creat Clear 64.2
[2017-11-14] MEDS: PANTOPRAZOLE SODIUM 20 MG TABLET.DR PO SCH (06:30)
[2017-11-14] MEDS: LEVOTHYROXINE SODIUM 150 MCG TABLET PO SCH (06:30)
[2017-11-14] MEDS: DULoxetine HCL 30 MG CAPSULE.SA PO SCH (08:29)
[2017-11-14] MEDS ORDERED: LISINOPRIL 10 MG TABLET PO SCH (09:00)
[2017-11-14] MEDS: ENOXAPARIN SODIUM 40 MG/0.4 ML SYRG SC SCH (09:52)
--- NOTE | 2017-11-14 10:07 | PN ---
Subjective - Date and Time Seen Date: 11/14/17 Time: 10:04 Subjective Narrative: Patient reports no acute events, pain well controlled, tolerating PO diet. She states she has been up walking with PT. Objective - Vitals Vitals: Last Vital Signs Temp 36.2 C L 11/14/17 06:37 Pulse 78 11/14/17 08:28 Resp 16 11/14/17 06:37 BP 121/71 11/14/17 08:28 Pulse Ox 97 11/14/17 06:37 - Abnormal Lab Findings Abnormal Lab Findings: Abnormal Lab Results 11/14/17 Range/Units 04:50 RBC 3.51 L (4.2-5.4) M/mm3 Hgb 10.9 L (12.5-16.0) gm/dL Hct 34.6 L (37.0-47.0) % MCH 31.1 H (27-31) pg MCHC 31.5 L (32-36) g/dl - Exam Constitutional: Present: Alert, Cooperative, No distress Respiratory: Present: no respiratory distress Extremity: Present: other - LLE--> bandages c/d/i, dorsal pedis 2+, SILT, 4+/5 knee ext/flex, incision no drainage/erythema Eye contact: Present: cooperative Cauti Physician Documentation - Urinary Catheter Management Urethral (Kowalski) Date of Insertion: 11/12/17 Time of Insertion: 10:00 Date of Removal: 11/13/17 Time of Removal: 06:50 Assessment/Plan Plan Narrative: -62 y/o female post-op day #2 s/p left cephalomedullary nailing of femur fracture - WBAT with walker PRN - PO diet as tolerated - PO pain medication PRN, percocet 5-325 mg 1-2 tabs every 4-6hrs PRN - Bandages changed, incision c/d/i, no erythema or drainage - PT/OT progress as tolerated, begin outpatient PT - DVT Prophy: dot stiles, lovenox til 10 days post-op then 325mg ASA daily for 6 weeks - Hgb 10.9, stable - F/u at 2 weeks post-op with Dr. Luna in orthopedic outpatient clinic - Problems/Diagnosis (1) Hip fracture, left Problem: Acute Qualifiers: Encounter type: initial encounter Fracture type: closed Qualified Code(s) : S72.002A - Fracture of unspecified part of neck of left femur, initial encounter for closed fracture
--- NOTE | 2017-11-14 10:20 | DS ---
(1) Hip fracture, left Problem: Acute Qualifiers: Encounter type: initial encounter Fracture type: closed Qualified Code(s) : S72.002A - Fracture of unspecified part of neck of left femur, initial encounter for closed fracture Description of Stay: ADMISSION DATE: 11/11/2017 DISCHARGE DATE: 11/14/2017 ADMISSION HPI by CHRISTY Martinez: Ms. Aranda is a 62-yr-old [place] pt of Dr. Lilia Carney with PMH of:Chronic Back pain, HTN, HLD, Hypothyroidism & Spinal stenosis s/p laminectomy. Pt states that she first developed LT hip pain that was radiating down the thigh on 10/23/17 after mowing her father's yard. She thought she may have pulled a muscle and took Tramadol and Naproxyn which made the pain tolerable. She used a walking cane which also eased her walking. She saw her PCP on 10/30/17 about the unrelenting LT hip pain. She had LT Hip/Pelvis X-rays which did not show any acute findings involving fracture or dislocation. She was started on Prednisone. She states that on the night of 11/07/17, she could not sleep due to severe pain on LT hip and ended up seeking care at the ED. She had Lumbar spine X-rays which also did not have any acute findings. She was felt to have Sciatica and was discharged home on Prednisone, hydrocodone and advised to f/u with her PCP. She saw Dr. Carney today (11/11) and she was referred to Dr. Miranda - Orthopedic spine specialty at the [facility], who did an x-ray of the pelvis and left hip and noticed a fracture there. Pt elected to come to the [facility] as she resides in the area. Dr. Luna aware about pt's case according to ERP . She will be admitted inpatient for tentative plans of surgery on 11/12/17. HOSPITAL COURSE: The patient was admitted to the hospital for a displaced left femoral neck fracture and underwent a closed reduction by Dr. Luna on 11/12/2017. The patients leukocytosis on admission was most likely reactive and her WBC count return to normal limits prior to discharge. Overall, the patients hospital admission was uneventful and the patient was discharged home in stable condition and will continue outpatient physical therapy evaluation and treatment. Given that there was no known traumatic injury prior to the fracture , I would recommend consideration of obtaining a DEXA scan as an outpatient and initiating therapy if necessary and also starting the patient on calcium and vitamin D. If thyroid function testing has not been completed within the past 6 months or so, I would recommend checking thyroid labs (TSH, FT4, FT3) as an outpatient as well. FOLLOW-UP APPOINTMENTS: - Outpatient PT evaluation and treatment - F/u at 2 weeks post-op with Dr. Luna in orthopedic outpatient clinic - Follow-up with PCP, Dr. Carney, within 1-2 weeks NEW OR CHANGED MEDICATIONS: -Percocet 5-325mg 1-2 tabs Q4H PRN severe pain. Patient given a written prescription for #75 with no refills. -Senna-S 2 tabs PO QHS (to hopefully help avoid opioid related constipation). This medication can be discontinued once the patient is no longer needed opioid pain medications. -Lovenox 40mg SubQ daily X 8 days (last day of lovenox will be 11/22/2017) -Aspirin 325mg PO daily X 6 weeks after completion of lovenox (start date for aspirin will be 11/23/2017 and last day of aspirin will be 01/03/2018) DISCONTINUED MEDICATIONS: -None RADIOLOGY REPORTS: Left Hip and Pelvis x-ray on 11/11/2017: Fracture of the proximal femur at the junction of the femoral neck and trochanteric region. Single view CXR on 11/11/2017: No acute cardiopulmonary process. CT of the left lower extremity without contrast on 11/12/2017: Comminuted, angulated, impacted fracture of the proximal femur at the intertrochanteric region, with minimal involvement of the subtrochanteric bone. There is no definite CT signs of a definable pathologic lesion. Separate lesion at the anterior aspect of the left femoral head neck junction, most likely a synovial herniation pit. Procedures Performed: see notes below List Procedures: Operative Report - Dictated Report Narrative: Date: 11/12/2017 Surgeon: Edmundo Luna M.D. Systems Test Engineer: Berto Arce PA-C Preoperative diagnosis: Left, displaced basicervical femoral neck fracture Postoperative diagnosis: Left, displaced basicervical femoral neck fracture Operations and procedures: 1. Closed reduction, cephalo-medullary fixation left basicervical femoral neck fracture 2. Intraoperative interpretation of radiographs Anesthesia: Gen. Specimens: None Estimated blood loss: 200 Milliliters Retained implants: [employer] Trigen InterTAN 130 degree size 11.5 mm by 20 centimeter nail with 95 millimeter lag screw and 90 millimeter compression screw , with distal locking screw Complications: None Indications for procedure: Sami is a 62-year-old female who developed a displaced left basicervical femoral neck fracture. Her history was atypical as she did not sustain any sort of trauma or fall. She had an approximately 2 week course of worsening left hip pain to the point where it became too painful to walk. Workup at an outside hospital revealed a displaced left basicervical femoral neck fracture and she requested transfer to [facility] for further evaluation and treatment. They were admitted to the hospital after being evaluated in the emergency department. Once the medical provider felt that they were stable for surgical treatment, the risks and benefits alternatives were discussed. The risks of , blood clots, bleeding, infection, nerve/ tendon/blood vessel injury, malunion, nonunion, failure of implants, painful implants, arthrosis, and need for additional procedures were discussed. The extremity was marked and consent was obtained on the floor. Procedure: After marking the operative extremity on the floor, the patient was taken to the operating room. A timeout was performed. IV antibiotics consisting of 2 g of Ancef were administered. A general anesthetic was induced by anesthesia, and the patient was then placed onto a fracture table with a well-padded perineal post. The non-operative leg was placed in a well-padded well leg gilliland in lithotomy position with an SCD on the leg. The operative leg was placed in a well-padded traction boot. Longitudinal traction, internal rotation , and adduction were utilized in order to reduce the fracture. Preliminary images were attained utilizing C-arm in both the AP and lateral views. This confirmed that we had obtained adequate visualization of the fracture as well as reduction. Next the hip was then prepped and draped in a standard sterile fashion. Next, the guidewire was placed percutaneously proximal to the greater trochanter to aleksandra a starting point at the tip of the greater trochanter centered on the lateral view. This was advanced down to the level below the lesser trochanter. A scalpel was utilized to dissect down to the greater trochanter in order to advance the soft tissue protector down to bone. The entry reamer was then advanced down the proximal femur to the level of the lesser trochanter. The above nail was then selected and impacted into place. The outrigger was utilized in order to confirm the appropriate depth of the nail. Using the alignment device on the outrigger, a josé incision was made over the lateral femur. Sharp dissection was carried through the iliotibial band down to the proximal femur. The guidewire was was placed into the femoral head in a center center position on AP and lateral views. A tip apex distance less than 25 mm combined was obtained. A head neck angle approximately 130 was confirmed to avoid varus deformity. Once we felt that we had placed the guidewire in the appropriate position, it was measured. Next the compression screw entry drill was advanced through the lateral cortex. This was then drilled down to the appropriate depth for the compression screw, again confirming that we are within the confines the bone. The derotational bar was then placed and the lag screw was drilled to the appropriate depth. The lag screw was then secured in place ensuring that we were within the confines of the bone. The compression screw was then inserted allowing for compression while releasing the traction on the leg. Using C-arm this was visualized to allow for compression across the fracture site. Once it was felt we had adequately stabilized the intertrochanteric fracture, the distal interlocking screw was placed in a static position confirmed to be the appropriate length and within the nail on both AP and lateral views. The nail was secured with a set screw backed off a quarter turn allowing for controlled compression and the outrigger was removed. The wounds were then thoroughly irrigated. Final images were obtained. The hip was placed through range of motion and showed no crepitance. The deep fascia was closed with 0 Vicryl, the subcutaneous tissue with 3-0 Vicryl, and the skin was closed with interrupted 4- 0 nylon. Sterile dressings of Xeroform, 4 x 4s, and tegaderm were applied. All sponge, sharp, and instrument counts were correct prior to closing the wounds. The patient was then awoken and transferred to the postanesthesia care unit in stable condition. Results and Findings: Laboratory Tests 11/11/17 11/11/17 11/11/17 18:55 18:57 18:57 WBC 13.9 H RBC 4.10 L Hgb 13.0 Plt Count 414 PT 9.8 INR (Anticoag Therapy) 0.98 PTT (Jaz) 22.6 L Sodium Plasma Sodium Potassium Chloride Carbon Dioxide Anion Gap Creatinine Est GFR (Non-Af Amer) BUN/Creatinine Ratio Random Glucose Calcium Calcium Adj for Albumin Magnesium Total Bilirubin AST ALT Alkaline Phosphatase Troponin I Less than 0.017 Total Protein Albumin 11/11/17 11/12/17 11/13/17 18:57 05:33 05:41 WBC 10.8 H D 14.1 H D RBC 3.94 L 3.83 L Hgb 12.2 L 12.0 L Plt Count 331 385 PT INR (Anticoag Therapy) PTT (Haywood) Sodium 137 Plasma Sodium 137 Potassium 4.4 Chloride 100 Carbon Dioxide 27.9 Anion Gap 13.5 Creatinine 0.93 Est GFR (Non-Af Amer) 65 BUN/Creatinine Ratio 30.1 H Random Glucose 103 Calcium 8.7 Calcium Adj for Albumin 8.9 Magnesium 2.1 Total Bilirubin 0.4 AST 24 ALT 43 Alkaline Phosphatase 77 Troponin I Total Protein 7.2 Albumin 3.4 11/14/17 04:50 WBC 10.2 D RBC 3.51 L Hgb 10.9 L Plt Count 326 PT INR (Anticoag Therapy) PTT (Jaz) Sodium Plasma Sodium Potassium Chloride Carbon Dioxide Anion Gap Creatinine Est GFR (Non-Af Amer) BUN/Creatinine Ratio Random Glucose Calcium Calcium Adj for Albumin Magnesium Total Bilirubin AST ALT Alkaline Phosphatase Troponin I Total Protein Albumin Discharge Location: Home Disposition: Home self-care Condition: Stable Discharge Activity: Other - WEIGHT BEARING TOLERATED WITH WALKER NEEDED Discharge Diet: Resume usual diet Custodial Therapy: Physicial Therapy Referrals: Lilia Carney MD [Primary Care Provider] - Problem Oriented Discharge Instructions to Patient/Family: Total Hip Replacement, Care After, [id number] Additional Patient Instructions (free text): - Weight bearing as tolerated with walker as needed - Outpatient PT evaluation and treatment - F/u at 2 weeks post-op with Dr. Luna in orthopedic outpatient clinic - Follow-up with PCP, Dr. Carney, within 1-2 weeks - AFTER COMPLETING 8 ADDITIONAL DAYS OF LOVENOX AT HOME (LAST DAY OF LOVENOX WILL BE 11/22/2017), START ASPIRIN 325MG DAILY x 6 WEEKS (START DATE FOR ASPIRIN WILL BE 11/23/2017 AND LAST DAY OF ASPIRIN WILL BE 01/03/2018) Prescriptions (Any new or edited meds): Aspirin [Aspirin Enteric Coated] 325 mg PO DAILY #42 tablet.dr Enoxaparin Sodium [Lovenox] 40 mg SC Q24H 8 Days #320 mg oxyCODONE HCL/ACETAMINOPHEN [Percocet 5 MG/325 MG] 1 - 2 tab PO Q4H PRN #75 tablet PRN Reason: Severe Pain (Pain Scale 7-10) Sennosides/Docusate Sodium [Senokot-S] 2 tab PO HS #60 tablet Complete Home Medications List: Complete Home Medication List: Levothyroxine Sodium [Synthroid] 150 mg PO DAILY 03/29/14 Naproxen [Naprosyn] 500 mg PO BID PRN 03/29/14 Duloxetine HCl [Cymbalta] 60 mg PO DAILY 10/15/16 Omeprazole 20 mg PO DAILY 11/07/17 tiZANidine HCL [Tizanidine HCl] 4 mg PO Q8H PRN 11/07/17 Soy Isofl/Blk Coh/Gr Tea/Yerba [[employer] Caplet] 1 cap PO DAILY 11/11/17 Aspirin [Aspirin Enteric Coated] 325 mg PO DAILY #42 tablet. 11/14/17 Enoxaparin Sodium [Lovenox] 40 mg SC Q24H 8 Days #320 mg 11/14/17 Sennosides/Docusate Sodium [Senokot-S] 2 tab PO HS #60 tablet 11/14/17 oxyCODONE HCL/ACETAMINOPHEN [Percocet 5 MG/325 MG] 1 - 2 tab PO Q4H PRN #75 tablet 11/14/17 Amb Orders for Discharge: PT Evaluation and Treatment Location: Determined By Patient
[2017-11-14 16:36] VITALS: BP 117/59
== END 2017-11-14 17:07 | disposition home or self-care (01) | DRG 482 ==
LOC: ER 17:35 → UNDOADMIN 19:44 → MS 19:44
PROVIDERS: ADMIT Nurse Practitioner; ATTEND Internal Medicine
DX: X58.XXXA Exposure to other specified factors, initial encounter; Y92.007 Garden or yard of unspecified non-institutional (private) residence as the place of occurrence of the external cause; E03.9 Hypothyroidism, unspecified; I10 Essential (primary) hypertension; K21.9 Gastro-esophageal reflux disease without esophagitis; E78.5 Hyperlipidemia, unspecified; S72.002A Fracture of unspecified part of neck of left femur, initial encounter for closed fracture
CPT/HCPCS: 36415; 71010; 71045; 73502; 73700; 76000; 80048; 80053; 83735; 84484; 85025; 85027; 85610; 85730; 86850; 86900; 93005; 97110; 97116; 97161; 97166; 97530; 97535; 99285